=== PATIENT | male | born 1960 | race Caucasian/White ===

== ENCOUNTER 2017-01-17 08:27 | Day surgery (SDC) | payer BC ==
--- NOTE | ~2017-01-17 | EGD ---
EGD REPORT [facility] [address] [place]. [id number] NAME: VICK GARNER : 56 STATUS : REG [facility]#: [id number] AGE: 56 ADM/REG DATE : 01/17/17 MR#: [id number] REPORT SERV DATE: 01/17/17 DICTATED BY: JOHANNY RIVERO DATE: 01/17/17 REPORT STATUS : Draft TRANSCRIBED BY: [facility] DATE: 01/17/17 Endoscopy Center Patient Name: Vick Garner Date of : 1960 Attending MD: JOHANNY RIVERO MD Procedure Date No Time: 01/17/2017 Procedure: Colonoscopy Indications: Screening for colorectal malignant neoplasm Referring MD: Joycelyn Chavez Medicines: Sedation Required Anesthesia Staff Assistance Complications: No immediate complications. Estimated blood loss: Minimal. Procedure: Pre-Anesthesia Assessment: - ASA Grade Assessment: I - A normal, healthy patient. After I obtained informed consent, the scope was passed under direct vision. Throughout the procedure, the patient's blood pressure, pulse, and oxygen saturations were monitored continuously. The [facility] [id number] was introduced through the anus and advanced to the cecum, identified by appendiceal orifice and ileocecal valve. The colonoscopy was performed without difficulty. The patient tolerated the procedure well. The quality of the bowel preparation was excellent. Findings: A sessile polyp was found in the ascending colon. The polyp was 5 mm in size. The polyp was removed with a cold snare. Resection and retrieval were complete. A sessile polyp was found in the proximal transverse colon. The polyp was 4 mm in size. The polyp was removed with a cold snare. Resection and retrieval were complete. Two sessile polyps were found in the recto-sigmoid colon. The polyps were 3 mm in size. These polyps were removed with a cold snare. Resection and retrieval were complete. Impression: - One 5 mm polyp in the ascending colon. Resected and retrieved. - One 4 mm polyp in the proximal transverse colon. Resected and retrieved. - Two 3 mm polyps at the recto-sigmoid colon. Resected and retrieved. Recommendation: - Patient has a contact number available for emergencies. The signs and symptoms of potential delayed complications were discussed with the patient. Return to EGD REPORT [address] [place]. [address] NAME: VICK GARNER : 56 STATUS : REG [facility]#: [id number] AGE: 56 ADM/REG DATE : 01/17/17 MR#: [id number] REPORT SERV DATE: 01/17/17 DICTATED BY: JOHANNY RIVERO DATE: 01/17/17 REPORT STATUS : Draft TRANSCRIBED BY: [employer] DATE: 01/17/17 normal activities tomorrow. Written discharge instructions were provided to the patient. - Return to previous diet daily. - Discharge patient to home. - Continue present medications. - Await pathology results. - Repeat colonoscopy in 5-10 years for surveillance based on pathology results. Procedure Code(s): --- Professional --- 73197, Colonoscopy, flexible, proximal to splenic flexure; with removal of tumor(s), polyp(s), or other lesion(s) by snare technique Diagnosis Code(s): --- Professional --- D12.7, Benign neoplasm of rectosigmoid junction D12.3, Benign neoplasm of transverse colon D12.2, Benign neoplasm of ascending colon Z12.11, Encounter for screening for malignant neoplasm of colon CPT copyright 2013 [employer]. All rights reserved. The codes documented in this report are preliminary and upon medical biller coder review may be revised to meet current compliance requirements. JOHANNY RIVERO MD 01/17/2017 10:35 AM This report has been signed electronically. Number of Addenda: 0 Note Initiated On: 01/17/2017 10:03 AM Scope Withdrawal Time 0 hours 14 minutes 5 seconds [id number] [place] [id number]
== END 2017-01-17 23:59 | disposition home or self-care (01) ==
LOC: DMU 08:27
PROVIDERS: Internal Medicine Gastroenterology
PROC: 0DBP8ZX Excision of Rectum, Via Natural or Artificial Opening Endoscopic, Diagnostic (ICD-10-PCS; 2017-01-17)
PROC: 0DBK8ZX Excision of Ascending Colon, Via Natural or Artificial Opening Endoscopic, Diagnostic (ICD-10-PCS; 2017-01-17)
PROC: 0DBL8ZX Excision of Transverse Colon, Via Natural or Artificial Opening Endoscopic, Diagnostic (ICD-10-PCS; principal; 2017-01-17 10:00)
DX: Z12.11 Encounter for screening for malignant neoplasm of colon (principal); D12.3 Benign neoplasm of transverse colon; D12.2 Benign neoplasm of ascending colon; K62.1 Rectal polyp; Z90.89 Acquired absence of other organs; Z98.52 Vasectomy status; Z98.890 Other specified postprocedural states
CPT/HCPCS: 88305